=== PATIENT | male | born 1980 | race Caucasian/White ===

== ENCOUNTER 2023-04-29 16:00 | Inpatient (IN) ==
--- NOTE | 2023-04-29 16:27 | ED Triage Note ---
Date of Service April 29, 2023 Provider in Triage Author: Kaushik Morse A History of Present Illness This patient was briefly evaluated while in triage. An abbreviated physical exam was performed. This patient is a 42-year-old Male who presents to the ED for evaluation of possible sepsis. Arrives via EMS. Seen in [facility] PCP today. Symptoms for 8 days. Taking advil and apap. Had duoneb prehospital for wheezing and O2 of 92%. No vaccinations-- Patient is Pierre. Physical Exam Limited Triage Exam: VITALS: Vitals are noted on the nurse's note and reviewed by myself. Vital signs stable. GENERAL: White male who appears ill on presentation HEART: Regular rate and rhythm without murmurs gallops or rubs. LUNGS: Scattered wheezing throughout. NEURO: Patient was alert and oriented to person place and time. CN II through XII grossly intact. Initial orders for labs and / or imaging were placed and patient was placed in the waiting area until a bed is available. Please see further documentation for the full ED course. MDM / Impression Impression Impression: Mycoplasma pneumonia, Weakness
[2023-04-29] MEDS ORDERED: SODIUM CHLORIDE 0.9% 1,000 ML IV SCH (16:30)
[2023-04-29] MEDS ORDERED: ACETAMINOPHEN 1,000 MG/100 ML VIAL IV STA (16:30)
[2023-04-29] MEDS ORDERED: KETOROLAC 30 MG/ML VIAL IV STA (16:30)
[2023-04-29 17:08] LABS: Base Excess VBG 4.8 mEq/L; HCO3 VBG 30 mmol/L; Oxygen Saturation VBG 76.3 %; PCO2 VBG 45 mmHg (38-50); PO2 VBG 46 mmHg; pH VBG 7.43 (7.36-7.41)
[2023-04-29 17:22] LABS: Basophils # (auto) 0.02 K/uL (0.00-0.20); Basophils % (auto) 0.2 %; Eosinophils # (auto) 0.05 K/uL (0.00-0.50); Eosinophils % (auto) 0.5 %; Hematocrit (blood only) 46.3 % (42.0-52.0); Hemoglobin 15.4 g/dl (14.0-18.0); Immature Granulocytes # (auto) 0.05 K/uL (0.01-0.20); Immature Granulocytes % (auto) 0.5 %; Lymphocytes # (auto) 1.41 K/uL (1.20-3.40); Lymphocytes % (auto) 13.4 %; Mean Corpuscular Hemoglobin 30.2 pg (25.0-34.0); Mean Corpuscular Hgb Conc 33.3 g/dL (32.0-36.0); Mean Corpuscular Volume 90.8 fL (80.0-100.0); Mean Platelet Volume 9.5 fL (9.4-12.4); Monocytes # (auto) 0.77 K/uL (0.11-0.59); Monocytes % (auto) 7.3 %; Neutrophils # (auto) 8.25 K/uL (1.40-6.50); Neutrophils % (auto) 78.1 %; Platelet Count 284 K/uL (130-400); RDW Coefficient of Variation 11.5 % (11.5-14.5); RDW Standard Deviation 38.5 fL (36.4-46.3); White Blood Count 10.55 K/ul (4.8-10.8)
--- NOTE | 2023-04-29 17:25 | XRay Report ---
XR chest 1V portable HISTORY: 42 years-old Male Sepsis acute sepsis COMPARISON: None TECHNIQUE: AP view of the chest FINDINGS: Calcified left hilar lymph nodes. The heart is normal in size. No pneumothorax, pleural effusion or a irspace consolidation. Spondylotic spurring of the spine. IMPRESSION: No acute process. ACT 112: Negative or not required by law. The above report was generated using voice recognition software. It may contain grammatical, syntax o r spelling errors. Electronically signed by: Ken Alvarado M.D. 04/29/2023 5:24 PM
--- NOTE | 2023-04-29 17:25 | Emergency Department Note ---
Impression & Plan Mycoplasma pneumonia, Weakness ED Provider Note Provider: Bright Abdi MD DATE OF SERVICE: 04/29/2023 CHIEF COMPLAINT: Cough, sore throat, headache HISTORY OF PRESENT ILLNESS: Patient is a 42-year-old gentleman referred from the outpatient clinic due to 8 days of illness symptoms. Started he states with a bit of sore throat rapidly developing into an occasionally slightly productive cough with headache and a bit of neck stiffness. Denies abdominal pain or significant nausea or diarrhea. States his 1-year-old daughter has a bad cough. Initially stopped at [facility] ER yesterday for evaluation but after a 5-hour wait left and went home. Denies other recent travel or leg swelling. Denies rash. Reports ibuprofen has been effective in helping with his headache but he has not taken any since this morning. Some chills and sweats reported. Reports a little bit of left ear pain today. Received a nebulizer enroute in the ambulance. No syncope reported. Reports he gets quite winded and short of breath with ambulation or exertion. PAST MEDICAL HISTORY: As noted above MEDICATIONS: [id number] Tylenol and Motrin only SOCIAL HISTORY: PHYSICAL EXAM: GENERAL: alert and oriented in no acute distress on stretcher fatigued in appearance Head: normocephalic and atraumatic EYES: No injection, discharge or icterus. EOMI. NECK: Trachea midline. Supple able to range his neck with minimal stiffness. ENT: Mucous membranes pink and moist. Pharynx without erythema or exudate. No hot potato voice. TMs obscured bilaterally due to cerumen LUNGS: Airway patent. No retractions. Breath sounds clear with good air entry bilaterally. HEART: Regular rate and rhythm. No chest wall tenderness ABDOMEN: Soft and non-tender, without guarding or rebound. SKIN: Acyanotic, warm, dry, without rashes EXTREMITIES: Without swelling, tenderness or deformity NEUROLOGICAL: No focal deficits. No aphasia. No facial droop or slurred speech. Normal strength and tone in the extremities. Sensation to gross touch normal. EK bpm normal sinus rhythm. No PVC or PAC. No acute ST segment elevation or depression with a QTc of 452. CONTINUOUS CARDIAC MONITORING: was ordered and showed a heart rate of 60s-90s bpm in normal sinus rhythm Patient's laboratory studies and imaging reviewed. Differential includes Infection, dehydration, metabolic abnormality, hypo/hyperglycemia, electrolyte disturbance, anemia, hypoxia, cardiac sources, intracerebral event, toxicologic, neurologic, as well as other pathologies. IMPRESSION/MEDICAL DECISION MAKING: Patient not hypoxic here or wheezy but does appear fatigued. Chest x-ray reviewed and interpreted by myself without evidence of focal pneumonia. Chest x-ray radiology report noted. Basic blood work obtained. VBG without evidence of significant acidosis or hypercarbia. Reports some headache and neck pain and chills. Given the duration of 8 days I doubt this is bacterial meningitis and he does not appear acutely altered although somewhat fatigued here. Given some Tylenol and Toradol for symptoms but not febrile. Given some IV fluids. Benign abdomen and doubt acute intra-abdominal pathology. No rashes reported. EKG obtained without significant abnormality. Cultures and lactate and procalcitonin as well as respiratory viral panel are sent to look for etiology. Reports daughter is sick with a cough. May be viral in nature. Blood work here without thrombocytopenia or anemia. White blood cell count within normal range at 10.5. No acidosis or hypercarbia. Lactate normal at 1.1. Procalcitonin 0.06 not elevated and I doubt a significant systemic bacterial infection. Is normal and I doubt ACS. Negative urinalysis. No significant electrolyte abnormalities or signs of renal dysfunction. Respiratory viral panel returns negative for flu and COVID but positive for mycoplasma pneumonia. Given initially a dose of doxycycline. Does desaturate into the high 80s here when resting in the room and is quite fatigued. Discussed with the patient. He is Oriental [employer] and quite fatigued and weak and discussed with him I do not feel additional head imaging is indicated. Decision making given his transient hypoxia while I doubt this is PE and likely more related to his illness will discuss with the hospitalist for observation overnight. Given a dose of ceftriaxone. Again I doubt he is meningitic at this time. Negative for pertussis on respiratory viral panel. Not hypotensive or tachycardic. DIAGNOSIS: Mycoplasma pneumonia, weakness DISPOSITION: Hospitalist will evaluate Patient was agreeable with this plan. Past Med/Surg History Surgical History No history of previous surgery Family History Denies family history of Prostate cancer Myocardial infarction Breast cancer Colorectal cancer Social History Smoking Status: Never smoker Hx Alcohol Use: No Hx Substance Use: No Preferred Language: Syrian marital status: Current Living Situation: Family current occupational status: employed Feels Safe at Home: Yes caffeine: Yes Dental Care, Regularly: Yes Physical Activity Frequency: 5-6 Times per Week Seatbelt Use: sometimes Sunscreen Use: No Allergies Allergies Allergy/AdvReac Type Severity Reaction Status Date / Time No Known Allergies Allergy Verified 04/29/23 17:22 Home Meds Home Medications Medication Instructions Recorded Confirmed ibuprofen 200 mg tablet 200 mg PO Q6H PRN PAIN/FEVER 04/29/23 04/29/23 Results & Data (ED) Vital Signs Vital Signs - 24 hr 04/29/23 16:26 04/29/23 16:26 04/29/23 16:56 Temperature 36.8 C Temperature Source Oral Pulse Rate 91 H 90 Pulse Rate [Apical] Respiratory Rate 20 Respiratory Effort / Characteristics Non-Labored Spontaneous Non-Labored Spontaneous Respiratory Depth Normal Normal Respiratory Pattern Regular Regular Blood Pressure 134/85 Blood Pressure [Left Arm] Blood Pressure Mean 101 Blood Pressure Mean [Left Arm] Blood Pressure Position Sitting Blood Pressure Position [Left Arm] Pulse Oximetry 93 Oxygen Delivery Method Nasal Cannula Nasal Cannula Oxygen Flow Rate 2 2 Sepsis Recent Fever Within 48 Hours Yes Sepsis New/Unexplained Change in Mental Status No Sepsis Action Taken by Nursing No Action Required Pulse Oximetry Post Tiitration 04/29/23 17:37 04/29/23 17:38 04/29/23 17:38 Temperature 36.7 C Temperature Source Oral Pulse Rate 86 Pulse Rate [Apical] 87 Respiratory Rate 18 18 Respiratory Effort / Characteristics Non-Labored Spontaneous Respiratory Depth Normal Respiratory Pattern Regular Blood Pressure Blood Pressure [Left Arm] 151/101 H Blood Pressure Mean Blood Pressure Mean [Left Arm] 117 Blood Pressure Position Blood Pressure Position [Left Arm] Pulse Oximetry 94 94 Oxygen Delivery Method Room Air Room Air Room Air Oxygen Flow Rate Sepsis Recent Fever Within 48 Hours Sepsis New/Unexplained Change in Mental Status Sepsis Action Taken by Nursing Pulse Oximetry Post Tiitration 04/29/23 18:06 04/29/23 18:07 04/29/23 20:00 Temperature Temperature Source Pulse Rate Pulse Rate [Apical] 84 83 Respiratory Rate 18 18 Respiratory Effort / Characteristics Non-Labored Spontaneous Respiratory Depth Normal Respiratory Pattern Regular Blood Pressure Blood Pressure [Left Arm] 141/85 H 90/67 L Blood Pressure Mean Blood Pressure Mean [Left Arm] 103 74 Blood Pressure Position Blood Pressure Position [Left Arm] Lying Pulse Oximetry 89 L 93 91 Oxygen Delivery Method Nasal Cannula Nasal Cannula Nasal Cannula Oxygen Flow Rate 2 2 2 Sepsis Recent Fever Within 48 Hours Sepsis New/Unexplained Change in Mental Status Sepsis Action Taken by Nursing Pulse Oximetry Post Tiitration 94 Laboratory Data 04/29/23 16:55 04/29/23 16:55 Lab Results 04/29/23 04/29/23 04/29/23 Range/Units 16:27 16:55 17:35 WBC 10.55 (4.8-10.8) K/ul RBC 5.10 (4.70-6.10) M/uL Hgb 15.4 (14.0-18.0) g/dl Hct 46.3 (42.0-52.0) % MCV 90.8 (80.0-100.0) fL MCH 30.2 (25.0-34.0) pg MCHC 33.3 (32.0-36.0) g/dL RDW Std Deviation 38.5 (36.4-46.3) fL RDW Coeff of Mayo 11.5 (11.5-14.5) % Plt Count 284 (130-400) K/uL MPV 9.5 (9.4-12.4) fL Immature Gran % (Auto) 0.5 % Neut % (Auto) 78.1 % Lymph % (Auto) 13.4 % [place] % (Auto) 7.3 % Eos % (Auto) 0.5 % Baso % (Auto) 0.2 % Neut # (Auto) 8.25 H (1.40-6.50) K/uL Lymph # (Auto) 1.41 (1.20-3.40) K/uL [place] # (Auto) 0.77 H (0.11-0.59) K/uL Eos # (Auto) 0.05 (0.00-0.50) K/uL Baso # (Auto) 0.02 (0.00-0.20) K/uL Immature Gran # (Auto) 0.05 (0.01-0.20) K/uL VBG pH 7.43 H (7.36-7.41) VBG pCO2 45 (38-50) mmHg VBG pO2 46 mmHg VBG HCO3 30 mmol/L VBG O2 Saturation 76.3 % VBG Base Excess 4.8 mEq/L Sodium 136 (136-145) mmol/L Potassium 4.2 (3.5-5.1) mmol/L Chloride 99 (98-107) mmol/L Carbon Dioxide 30 (21-32) mmol/L Anion Gap 7 (3-11) BUN 14 (6-23) mg/dl Creatinine 0.81 (0.6-1.4) mg/dl Est Cr Clr Drug Dosing Not Reportable Est GFR ( Amer) 126.2 ml/min Est GFR (Non-Af Amer) 108.9 ml/min BUN/Creatinine Ratio 17.3 (10-20) Glucose 109 H (70-99(Fasting)) mg/dl Lactate 1.1 (0.4-2.0) mmol/L Calcium 9.2 (8.6-10.3) mg/dl Magnesium 2.3 (1.7-2.4) mg/dl Total Bilirubin 0.5 (0.2-1.0) mg/dl Direct Bilirubin 0.1 (0-0.2) mg/dl AST 27 (13-39) U/L ALT 35 (7-52) U/L Alkaline Phosphatase 68 (34-104) U/L Troponin I High Sens 8.7 (0-20) pg/ml Total Protein 8.1 (6.0-8.3) gm/dl Albumin 4.1 (3.4-5.0) gm/dl Procalcitonin 0.06 (0-0.5) ng/ml Urine Color Yellow Urine Appearance Clear (Clear) Urine pH 5.5 (4.5-7.5) Ur Specific [place] 1.017 (1.000-1.030) Urine Protein Negative (Negative) Urine Glucose (UA) Negative (Negative) Urine Ketones Negative (Negative) Urine Blood Negative (Negative) Urine Nitrite Negative (Negative) Urine Bilirubin Negative (Negative) Urine Urobilinogen Negative (Negative) Ur Leukocyte Esterase Negative (Negative) Adenovirus (PCR) Not Detected (NotDetected) B. pertussis DNA (PCR) Not Detected (NotDetected) B.parapertussis DNA PCR Not Detected (NotDetected) C. pneumoniae DNA (PCR) Not Detected (NotDetected) Coronavirus OC43 (PCR) Not Detected (NotDetected) Coronavirus HKU1 (PCR) Not Detected (NotDetected) Coronavirus 229E (PCR) Not Detected (NotDetected) SARS-CoV-2 (PCR) Not Detected (NotDetected) Coronavirus NL63 (PCR) Not Detected (NotDetected) Human Metapneumovir PCR Not Detected (NotDetected) Influenza Type A (PCR) Not Detected (NotDetected) Influenza Type B (PCR) Not Detected (NotDetected) M. pneumoniae (PCR) DETECTED A* (NotDetected) Parainfluenza 1 (PCR) Not Detected (NotDetected) Parainfluenza 2 (PCR) Not Detected (NotDetected) Parainfluenza 3 (PCR) Not Detected (NotDetected) Parainfluenza 4 (PCR) Not Detected (NotDetected) RSV (PCR) Not Detected (NotDetected) Entero/Rhino (PCR) Not Detected (NotDetected) Administered Medications Discontinued Medications Azithromycin (Azithromycin 250 Mg Tab) 500 mg PO NOW ONE Stop: 04/29/23 20:43 Last Admin: 04/29/23 20:51 Dose: 500 mg Documented By: JO Doxycycline Hyclate (Doxycycline Hyclate 100 Mg Cap) 100 mg PO NOW STA Stop: 04/29/23 19:18 Last Admin: 04/29/23 19:24 Dose: 100 mg Documented By: JO Sodium Chloride (Nss) 1,000 mls @ 999 mls/hr IV .Q1H1M COLE Stop: 04/29/23 17:30 Last Infusion: 04/29/23 18:07 Dose: Infused Documented By: Admin: 04/29/23 16:53 Dose: 999 mls/hr Documented By: STEVEN Acetaminophen (Ofirmev) 1,000 mg in 100 mls @ 400 mls/hr IV NOW STA Stop: 04/29/23 16:44 Last Infusion: 04/29/23 18:06 Dose: Infused Documented By: Admin: 04/29/23 17:29 Dose: 400 mls/hr Documented By: REJI Ceftriaxone Sodium (Rocephin) 2,000 mg in 50 mls @ 100 mls/hr IV NOW STA Stop: 04/29/23 20:04 Last Infusion: 04/29/23 20:22 Dose: Infused Documented By: Admin: 04/29/23 19:42 Dose: 100 mls/hr Documented By: LINWOOD Ketorolac Tromethamine (Ketorolac 30 Mg/Ml Vial) 30 mg IV NOW STA Stop: 04/29/23 16:31 Last Admin: 04/29/23 17:29 Dose: 30 mg Documented By: REJI Imaging Data Radiologist's Impression: Chest X-Ray 04/29/23 16:27 XR chest 1V portable HISTORY: 42 years-old Male Sepsis acute sepsis COMPARISON: None TECHNIQUE: AP view of the chest FINDINGS: Calcified left hilar lymph nodes. The heart is normal in size. No pneumothorax, pleural effusion or airspace consolidation. Spondylotic spurring of the spine. IMPRESSION: No acute process. ACT 112: Negative or not required by law. The above report was generated using voice recognition software. It may contain grammatical, syntax or spelling errors. Electronically signed by: Ken Alvarado M.D. 04/29/2023 5:24 PM Discharge Plan Visit Data Chief Complaint: Shortness of Breath/Dyspnea Stated Complaint: SHORTNESS OF BREATH, FEVER X8 DAYS ED Provider: Bright Abdi Discharge Problem: Mycoplasma pneumonia, Weakness Patient Disposition: Being Evaluated by Hospitalist Discharge Instructions Interventions: ED Discharge Assessment Last Done: 04/29/23 21:33
[2023-04-29 17:38] LABS: Alanine Aminotransferase 35 U/L (7-52); Albumin Level 4.1 gm/dl (3.4-5.0); Alkaline Phosphatase 68 U/L (34-104); Anion Gap 7 (3-11); Aspartate Aminotransferase 27 U/L (13-39); BUN Creatinine Ratio 17.3 (10-20); Bilirubin Direct 0.1 mg/dl (0-0.2); Bilirubin,Total 0.5 mg/dl (0.2-1.0); Blood Urea Nitrogen 14 mg/dl (6-23); Calcium 9.2 mg/dl (8.6-10.3); Carbon Dioxide 30 mmol/L (21-32); Chloride 99 mmol/L (98-107); Est GFR (African American) 126.2 ml/min; Est GFR (Non-African American) 108.9 ml/min; Glucose 109 mg/dl (70-99(Fasting)); Magnesium 2.3 mg/dl (1.7-2.4); Potassium 4.2 mmol/L (3.5-5.1); Sodium 136 mmol/L (136-145); Total Protein 8.1 gm/dl (6.0-8.3)
[2023-04-29 17:44] LABS: Appearance Urine Clear (Clear); Bilirubin Urine Negative (Negative); Blood Urine Negative (Negative); Color Urine Yellow; Glucose Urine UA Negative (Negative); Ketones Urine Negative (Negative); Leukocyte Esterase Urine Negative (Negative); Nitrite Urine Negative (Negative); Protein Urine Negative (Negative); Specific Gravity Urine 1.017 (1.000-1.030); Urobilinogen Urine Negative (Negative); pH Urine 5.5 (4.5-7.5)
[2023-04-29 17:44] LABS: Troponin I High Sensitivity 8.7 pg/ml (0-20)
[2023-04-29 18:37] LABS: Adenovirus PCR Not Detected (NotDetected); Bordetella parapertussis PCR Not Detected (NotDetected); Bordetella pertussis PCR Not Detected (NotDetected); Chlamydia pneumoniae PCR Not Detected (NotDetected); Coronavirus 229E PCR Not Detected (NotDetected); Coronavirus CoV-2 (COVID19)PCR Not Detected (NotDetected); Coronavirus HKU1 PCR Not Detected (NotDetected); Coronavirus NL63 PCR Not Detected (NotDetected); Coronavirus OC43PCR Not Detected (NotDetected); Human Metapneumovirus PCR Not Detected (NotDetected); Influenza A PCR Not Detected (NotDetected); Influenza B PCR Not Detected (NotDetected); Parainfluenza Virus 1 PCR Not Detected (NotDetected); Parainfluenza Virus 2 PCR Not Detected (NotDetected); Parainfluenza Virus 3 PCR Not Detected (NotDetected); Parainfluenza Virus 4 PCR Not Detected (NotDetected); Respiratory Syncytial VirusPCR Not Detected (NotDetected); Rhinovirus/Enterovirus PCR Not Detected (NotDetected)
[2023-04-29 18:54] LABS: Mycoplasma pneumoniae PCR DETECTED (NotDetected)
[2023-04-29] MEDS ORDERED: DOXYCYCLINE HYCLATE 100 MG CAP PO STA (19:17)
[2023-04-29] MEDS ORDERED: cefTRIAXone SODIUM 2,000 MG/50 ML BAG IV STA (19:35)
--- NOTE | 2023-04-29 20:12 | History & Physical Report ---
Date of Service April 29, 2023 Assessment & Plan (1) Mycoplasma pneumonia: Plan: 42yo Male without relevant PMH here for concern SOB headache chest pain for past 8 days found to have mycoplasma pneumoniae. Mycoplasma pneumonia with hypoxia -91% on 2L O2 -CXR no acute process -WBC lactate procal wnl -in ED received ceftriaxone doxycycline -admit to med/surg -will give azithromycin 500mg now and azithromycin 250mg daily for the next 4 days. -prn tylenol for fever FENa: regular Code Status: Full DVT PPX: ambulatory Dispo: med/surg Kristine Angeles D.O. PGY 3, FCM History of Present Illness Primary Care Provider: Lashonda Jacinto MD 42yo Male without relevant PMH here for concern SOB headache chest pain for past 8 days found to have mycoplasma pneumoniae. Patient is an Pierre individual. Also describes fever and night sweats. Denies nausea vomiting diarrhea constipation. Denies rashes. Patient asks if he needs a CT of his head his his headache. Also describes left sided hearing lost over past 2 days. Patient not on any chronic medication. Denies allergies Allergies Allergy/AdvReac Type Severity Reaction Status Date / Time No Known Allergies Allergy Verified 04/29/23 17:22 Home Medications Medication Instructions Recorded Confirmed Type ibuprofen 200 mg tablet 200 mg PO Q6H PRN PAIN/FEVER 04/29/23 04/29/23 History Past Med/Surg History Surgical History No history of previous surgery Family History Denies family history of Prostate cancer Myocardial infarction Breast cancer Colorectal cancer Social History Smoking Status: Never smoker Hx Alcohol Use: No Hx Substance Use: No Preferred Language: Samoan Safety Belt Installer Required: No Beliefs That Will Affect Care: None marital status: Current Living Situation: Spouse current occupational status: employed Feels Safe at Home: Yes Safety Concerns: Feels Safe At This Time caffeine: Yes Dental Care, Regularly: Yes Physical Activity Frequency: 5-6 Times per Week Seatbelt Use: sometimes Sunscreen Use: No Physical Exam Constitutional: WD/WN, vitals as above Eyes: PERRL, conjunctivae normal, anicteric sclerae ENMT: reduced hearing in right ear, cerumen impaction in left ear Neck: trachea midline, no thyromegaly Respiratory: Auscultation: + wheezes (throughout right lung) Cardiovascular: Rate/Rhythm: regular rate and regular rhythm Gastrointestinal (Abdomen): normal bowel sounds, soft, nontender, no h epatosplenomegaly Skin: no rashes, warm and dry Results & Data Results & Data Vital Signs (Past 12 Hours) Vital Signs Temp Pulse Pulse Resp BP BP Pulse Ox 04/29/23 20:00 83 18 90/67 L 91 04/29/23 18:07 84 18 141/85 H 93 04/29/23 18:06 89 L 04/29/23 17:38 04/29/23 17:38 36.7 C 87 18 151/101 H 94 04/29/23 17:37 86 18 94 04/29/23 16:56 90 04/29/23 16:26 36.8 C 91 H 20 134/85 93 04/29/23 16:26 O2 Del Method O2 Flow Rate 04/29/23 20:00 Nasal Cannula 2 04/29/23 18:07 Nasal Cannula 2 04/29/23 18:06 Nasal Cannula 2 04/29/23 17:38 Room Air 04/29/23 17:38 Room Air 04/29/23 17:37 Room Air 04/29/23 16:56 04/29/23 16:26 Nasal Cannula 2 04/29/23 16:26 Nasal Cannula 2 Supervising Physician Co-Signing Physician Notes Patient seen and examined, chart reviewed, case discussed with Dr. Angeles and I agree with the assessment and plan as above. In brief, patient is a 42yo [facility] male presenting with 8 days of cough, CP, SOB, GARCIA and night sweats. On exam he is afebrile, HD stable. Mildly hypoxic on room air at 89% - improved with supplemental O2 2L by NC Ill in appearance but non-toxic Skin- warm, dry, intact, no rashes HEENT- dry mucus membranes, PERRL, Neck supple Heart - +S1/S2, regular Lungs - mild diffuse crackles, no wheeze or rhonchi Abd - +BS, soft, NT/ND Ext - warm, well perfused Neuro - AA&O, no facial droop, MS 5/5 in UE/LE bilaterally, negative Kernig's and Brudzinski sign Labs and images reviewed. WBC is normal at 10.55, some neutrophil elevation Respiratory Biofire panel POSITIVE for Mycoplasma CXR unremarkable Assessment/Plan 42yo male with no significant past medical history presenting with 8 days of cough, congestion, headache, night sweats and GARCIA. Found to have mycoplasma pneumonia. Mild hypoxia at 89% on room air requiring supplemental O2 Will treat with course of Azithromycin Continue supplemental O2 as needed - wean as tolerated Will pursue additional workup of headache if it persists or worsens. At this time most likely secondary to underlying acute infection. Remainder as above Resident Activity Tracking Resident Involvement: Resident Care Provided Care Provided: Adult Hospital Medicine
[2023-04-29] MEDS ORDERED: ACETAMINOPHEN 325 MG TAB PO PRN (20:15)
[2023-04-29] MEDS ORDERED: POLYETHYLENE (MIRALAX) 17 GM PACK PO PRN (20:15)
[2023-04-29] MEDS ORDERED: BENZONATATE 100 MG CAPSULE PO PRN (20:31)
[2023-04-29] MEDS ORDERED: AZITHROMYCIN 250 MG TAB PO ONE (20:42)
[2023-04-29] MEDS ORDERED: AMOXICILLIN 875 MG TAB PO SCH (21:00)
[2023-04-29] MEDS ORDERED: DOXYCYCLINE HYCLATE 100 MG CAP PO SCH (21:00)
--- NOTE | 2023-04-29 23:26 | Billing Data ---
Date of Service April 29, 2023 Coding Level of Care Code 84441 INT INP/OBS CARE
[2023-04-30] MEDS ORDERED: DOXYCYCLINE HYCLATE 100 MG CAP PO SCH (09:00)
[2023-04-30] MEDS ORDERED: AMOXICILLIN 500 MG CAP PO SCH (09:00)
[2023-04-30 09:02] LABS: Hematocrit (blood only) 42.5 % (42.0-52.0); Hemoglobin 14.3 g/dl (14.0-18.0); Mean Corpuscular Hemoglobin 30.6 pg (25.0-34.0); Mean Corpuscular Hgb Conc 33.6 g/dL (32.0-36.0); Mean Corpuscular Volume 90.8 fL (80.0-100.0); Mean Platelet Volume 9.7 fL (9.4-12.4); Platelet Count 268 K/uL (130-400); RDW Coefficient of Variation 11.7 % (11.5-14.5); RDW Standard Deviation 38.8 fL (36.4-46.3); Red Blood Count 4.68 M/uL (4.70-6.10)
[2023-04-30 09:18] LABS: BUN Creatinine Ratio 19.3 (10-20); Calcium 8.8 mg/dl (8.6-10.3); Creatinine Clr Calc Pharmacy 131.5 ml/min; Est GFR (African American) 124.9 ml/min; Est GFR (Non-African American) 107.8 ml/min; Potassium 4.6 mmol/L (3.5-5.1)
--- NOTE | 2023-04-30 11:04 | Electrocardiogram Report ---
Test Reason : Blood Pressure : / mmHG Vent. Rate : 088 BPM Atrial Rate : 088 BPM P-R Int : 146 ms QRS Dur : 086 ms QT Int : 374 ms P-R-T Axes : 029 057 051 degrees QTc Int : 452 ms Normal sinus rhythm Normal ECG No previous ECGs available Confirmed by Juliano Aguilera ([id number]) on 04/30/2023 11:04:01 AM Referred By: REFERRED SELF Confirmed By:Ten Aguilera
[2023-04-30] MEDS ORDERED: AZITHROMYCIN 250 MG TAB PO SCH (12:00)
--- NOTE | 2023-04-30 13:22 | Discharge Summary ---
Date of Service April 30, 2023 Admission HPI Per Admitting Provider 42yo Male without relevant PMH here for concern SOB headache chest pain for past 8 days found to have mycoplasma pneumoniae. Patient is an Pierre individual. Also describes fever and night sweats. Denies nausea vomiting diarrhea constipation. Denies rashes. Patient asks if he needs a CT of his head his his headache. Also describes left sided hearing lost over past 2 days. Patient not on any chronic medication. Denies allergies Principal Diagnosis mycoplasma pneumonia Discharge Exam Constitutional: WD/WN, vitals as above Eyes: PERRL, conjunctivae normal, anicteric sclerae Neck: trachea midline, no thyromegaly Respiratory: Auscultation: clear Cardiovascular: Rate/Rhythm: regular rate and regular rhythm Gastrointestinal (Abdomen): normal bowel sounds, soft, nontender, no hepatosplenomegaly Skin: no rashes, warm and dry Discharge Data Allergies Allergy/AdvReac Type Severity Reaction Status Date / Time No Known Allergies Allergy Verified 04/29/23 17:22 Consultations 04/29/23 19:56 ED Decision to Admit Stat Hospital Course (1) Mycoplasma pneumonia: 42yo Male without relevant PMH here for concern SOB headache chest pain for past 8 days found to have mycoplasma pneumoniae. Mycoplasma pneumonia with hypoxia -91% on 2L O2 -CXR no acute process -WBC lactate procal wnl -in ED received ceftriaxone doxycycline -improved with antibiotics will discharge to complete 5 days of azithromycin, Total Time Total Time Spent Total Time Spent (In Minutes): 32 Discharge Plan Discharge Items Patient Disposition: Home - Self-Care Reason For Visit: SOB Discharge Diagnosis: SOB Activity: Resume your previous activity Non-emergency contact: Primary Care Provider Call non-emergency contact if: you have any medication questions Follow-up/Referrals: Lashonda Jacinto MD [Primary Care Provider] - 05/04/23 1:00 pm Diet: Regular Addtl Attending Provider Instructions: You have been hospitalized for Mycoplasma. During your stay at [facility], we have made an effort to correct the problem that brought you to the hospital while keeping you as comfortable as possible. Antibiotics were used to bring your condition under control and your discharge instructions will include directions for any medications you should take after leaving the hospital. Please make sure you see your Primary Care Provider as part of your follow up plan. Pending Studies at Discharge: No Stand-Alone Forms: My [facility], Smoking Cessation Medications and DC Order Prescriptions: New azithromycin 250 mg Tablet 250 mg PO .noon Qty: 4 0RF Continued ibuprofen 200 mg Tablet 200 mg PO Q6H PRN (Reason: PAIN/FEVER) Discharge Orders: Discharge Order (Routine); Ordered 04/30/23 Ordered By: Norman Andrade Admission Data Admit Date/Time: 04/29/23 20:15 Attending Provider: Norman Andrade Admit Provider: Kristine Angeles Primary Care Provider: Lashonda Jacinto Other Providers: Mable Sanchez Other Interventions: Discharge Summary Assessment (RN) Last Done: 04/30/23 15:03 Coding Level of Care Code 86712 INP/OBS DISCH >30 MIN Diagnoses Mycoplasma pneumonia J15.7
== END 2023-04-30 15:50 | disposition home or self-care (01) | DRG 195 ==
LOC: ED 16:00 → SUATTDRO 20:15 → EDINP 20:15 → 3N 21:33